=== PATIENT | female | born 1950 | race Caucasian/White ===

== ENCOUNTER 2017-01-05 01:07 | Emergency (ER) | payer OTHER ==
[~2017-01-05 01:07] MED LIST: AMITRIPTYLINE150 MG PO; ASP325 PO; ESTRACE0.5 MG PO; KEFLEX500 MG PO; KLOR-CON M1010 MEQ PO; LAC PO; LIPI20 PO; LISINOPRIL-HYDR1 TA2 PO; METHADONE HCL5 MG PO; ZES5 PO
[2017-01-05 02:10] LABS: CARBON DIOXIDE 22.7 mmol/L (21-32); CHLORIDE SERUM 105 mmol/L (98-107); CREATININE SERUM 0.7 mg/dL (0.6-1.0); GFR1 > 60 mL/min; GLUCOSE SERUM 132 mg/dL (74-106); POTASSIUM SERUM 3.3 mmol/L (3.5-5.1); SODIUM SERUM 141 mmol/L (136-145)
[2017-01-05 02:16] LABS: ALBUMIN 3.6 g/dL (3.4-5.0); ALKALINE PHOSPHATASE 84 U/L (46-116); ALT/SGPT 28 U/L (14-59); AST/SGOT 21 U/L (15-37); BILIRUBIN TOTAL 0.43 mg/dL (0.20-1.00); TOTAL PROTEIN, SERUM 7.2 g/dL (6.4-8.2)
[2017-01-05 02:24] LABS: BASOPHIL % 0.3 % (0-2); PLATELET COUNT 380 x10^3mcL (130-400); RED CELL DISTRIBUTION WIDTH 14.2 % (11.5-14.5)
[2017-01-05 03:58] LABS: UA SPECIFIC GRAVITY <=1.005 (1.005-1.035); microscopic required? YES; urine erythrocyte 1+ (NEGATIVE)
[2017-01-05 04:06] LABS: AMPHETAMINE QUAL UR NONE DETECTED (NEG <=1000)
[2017-01-05 04:32] VITALS: BP 126/82
== END 2017-01-05 04:32 | disposition home or self-care (01) ==
LOC: ED 01:07
PROVIDERS: Emergency Medicine
DX: S01.412A Laceration without foreign body of left cheek and temporomandibular area, initial encounter (principal); X58.XXXA Exposure to other specified factors, initial encounter; Y93.89 Activity, other specified; Y99.8 Other external cause status; Y92.89 Other specified places as the place of occurrence of the external cause
CPT/HCPCS: 80307; 83880; G0480; J2001

== ENCOUNTER 2018-04-06 11:44 | Inpatient (IN) | payer OTHER ==
[~2018-04-06] VITALS: Ht 165.1 cm; Wt 67.6 kg
[2018-04-06 13:02] LABS: BASOPHIL % 0.2 % (0-2); PLATELET COUNT 395 x10^3mcL (130-400); RED CELL DISTRIBUTION WIDTH 14.4 % (11.5-14.5)
[2018-04-06 13:14] LABS: CALCIUM 9.5 mg/dL (8.5-10.1); CARBON DIOXIDE 29.6 mmol/L (21-32); CHLORIDE SERUM 104 mmol/L (98-107); GLUCOSE SERUM 100 mg/dL (74-106); POTASSIUM SERUM 3.9 mmol/L (3.5-5.1); SODIUM SERUM 141 mmol/L (136-145)
[2018-04-06 13:15] LABS: microscopic required? NO
[2018-04-06 13:19] LABS: ALBUMIN 4.2 g/dL (3.4-5.0); ALKALINE PHOSPHATASE 109 U/L (46-116); ALT/SGPT 31 U/L (14-59); AMYLASE 87 U/L (25-115); AST/SGOT 25 U/L (15-37); BILIRUBIN TOTAL 0.4 mg/dL (0.20-1.00); LIPASE 144 IU/L (73-393); MAGNESIUM 1.9 mg/dL (1.8-2.4)
[2018-04-06 13:20] LABS: UA SPECIFIC GRAVITY <=1.005 (1.005-1.035); urine erythrocyte NEGATIVE (NEGATIVE)
[2018-04-06 13:21] LABS: CHOLESTEROL 239 mg/dL (<200); HDL CHOLESTEROL 70 mg/dL (40-60)
[2018-04-06 13:37] LABS: AMPHETAMINE QUAL UR NONE DETECTED (See below)
[2018-04-06 15:37] VITALS: BP 153/82
[2018-04-06 15:39] LABS: T3 TOTAL 1.18 ng/mL
[2018-04-06 15:42] VITALS: Ht 165.1 cm; Wt 67.6 kg
[2018-04-06 15:56] LABS: FREE T4 0.9 ng/dL (0.76-1.46); FREE THYROXINE INDEX 2.7 ug/dL (1.4-4.5); T4(THYROXINE) 7.6 ug/dL (4.7-13.3)
[2018-04-06] MEDS ORDERED: NEU300 PO (17:36)
[2018-04-06] MEDS ORDERED: LIPI10 PO (17:37)
[2018-04-06 18:05] VITALS: BP 153/82
[2018-04-06 21:26] VITALS: BP 129/64
[2018-04-07 05:44] VITALS: BP 127/62
[2018-04-07 07:12] LABS: CALCIUM 8.3 mg/dL (8.5-10.1); CARBON DIOXIDE 22.8 mmol/L (21-32); CHLORIDE SERUM 112 mmol/L (98-107); GLUCOSE SERUM 84 mg/dL (74-106); POTASSIUM SERUM 3.7 mmol/L (3.5-5.1); SODIUM SERUM 142 mmol/L (136-145)
[2018-04-07 07:15] LABS: CREATININE SERUM 0.6 mg/dL (0.6-1.0); GFR1 > 60 mL/min
[2018-04-07 07:46] LABS: BASOPHIL % 0.6 % (0-2); PLATELET COUNT 260 x10^3mcL (130-400)
[2018-04-07 07:56] LABS: RED CELL DISTRIBUTION WIDTH 14.6 % (11.5-14.5)
[2018-04-07 08:40] VITALS: BP 116/54
[2018-04-07 10:12] VITALS: BP 116/54
[2018-04-07] MEDS ORDERED: PLA75 PO (12:59)
[2018-04-07 13:06] VITALS: BP 143/75
== END 2018-04-07 14:03 | disposition home or self-care (01) | DRG 73 ==
LOC: ED 11:44 → DU 14:47
PROVIDERS: Emergency Medicine; Family Medicine
DX: G90.9 Disorder of the autonomic nervous system, unspecified (principal); N17.0 Acute kidney failure with tubular necrosis; I10 Essential (primary) hypertension; F41.9 Anxiety disorder, unspecified; M50.30 Other cervical disc degeneration, unspecified cervical region; E78.00 Pure hypercholesterolemia, unspecified; E78.5 Hyperlipidemia, unspecified; F12.90 Cannabis use, unspecified, uncomplicated; Z79.82 Long term (current) use of aspirin; Z79.899 Other long term (current) drug therapy; Z86.73 Personal history of transient ischemic attack (TIA), and cerebral infarction without residual deficits; Z68.26 Body mass index [BMI] 26.0-26.9, adult
CPT/HCPCS: 83880; 84439; 94150; 97535-GP; C9113; J7030; Q0092

== ENCOUNTER 2018-06-06 12:31 | Emergency (ER) | payer OTHER ==
[~2018-06-06] VITALS: Ht 162.6 cm; Wt 73.9 kg
[~2018-06-06 12:31] MED LIST changes: +LIPI10 PO; +NEU300 PO; +PLA75 PO
[2018-06-06 12:43] VITALS: Ht 162.6 cm; Wt 73.9 kg
[2018-06-06 14:30] VITALS: BP 158/93
== END 2018-06-06 14:34 | disposition home or self-care (01) ==
LOC: ED 12:31
DX: M54.41 Lumbago with sciatica, right side (principal); I10 Essential (primary) hypertension; Z86.73 Personal history of transient ischemic attack (TIA), and cerebral infarction without residual deficits; Z90.710 Acquired absence of both cervix and uterus; Z98.890 Other specified postprocedural states
CPT/HCPCS: J1885